=== PATIENT | male | born 1960 | race Caucasian/White ===

== ENCOUNTER 2023-07-28 12:32 | Outpatient (CLI) | payer BC, SELFPAY ==
--- NOTE | 2023-07-28 12:32 | NM_ITS ---
APPROVED REPORT Exam: Nuclear Stress Test Indication: HTN, FM HX, SOB, FATIGUE Patient Location: Outpatient Stress Tech: Melody Adan [place] Tech:Gracy HightowerJACKIE RT(R)(N) Ht: 5 ft 6 in Wt: 210 lbs HR: 67 bpm BP: 148/95 mmHg BSA: 2.04 m2 TID: 1.07 BMI: 33.8 History: HTN, FM HX, SOB, FATIGUE Procedure: Patient exercised on Steven protocol 8:53 minutes and sec, resting heart rate 67 bpm, resting blood pressure 148/95 mmHg, with exercise maximum heart rate achived was 150 bpm which is 94 % of the maximum predicted heart rate and blood pressure was 181/83 mmHg. Test was stopped due to FATIGUE. Patient has exercise capacity, achieved 10.1 METs of workload on treadmill, the blood pressure response to exercise was . Cardiac Stress and Resting SPECT Images: Cardiac Stress and Resting SPECT images were obtained using technetium 99m Myoview 31.5 mCi stress and 10.03 mCi at rest. Resting and stress imaging in supine and prone positions demonstrate no evidence of fixed or reversible perfusion defects. Gated imaging demonstrates normal global and regional LV systolic function. LVEF is calculated at 53%. Conclusion: No evidence of fixed or reversible perfusion defects. Gated imaging demonstrates normal global and regional LV systolic function. LVEF is calculated at 53%. Electronically signed by : Charo Caceres MD 07/29/2023 13:24:34
[2023-07-28] MEDS: ISOTOPE MYOVIEW (PER STUDY) 1 DOSE IV (14:59)
[2023-07-28] MEDS: SODIUM CHLORIDE 0.9% 10ML SYR (RAD ONLY) 10 ML IV ×2 (14:59)
== END 2023-07-28 23:59 ==
LOC: RAD 12:32
PROVIDERS: PCP Family Medicine; Visit Provider Physician Assistant
DX: R06.00 Dyspnea, unspecified (principal); R07.89 Other chest pain; R42 Dizziness and giddiness; G47.33 Obstructive sleep apnea (adult) (pediatric); M79.10 Myalgia, unspecified site; R53.83 Other fatigue
CPT/HCPCS: 78452; 93017; 93018; A9502

== ENCOUNTER 2023-08-04 09:59 | Outpatient (CLI) | payer BC, SELFPAY ==
--- NOTE | 2023-08-04 10:00 | CA_ITS ---
APPROVED REPORT EXAM: Comprehensive 2D, Doppler, and color-flow Echocardiogram Spud Grader: Flor Rose RVT Ht: 5 ft 6 in Wt: 212lbs BSA: 2.05 BP: 151/85 mmHg Indications: CP,SOA,DELFINA,EDEMA,FATIGUE,EX SMOKER,HTN,HLD TDS-PT BODY HABITUS 2D Dimensions LA Volume 32.30 mL LA Volume Index 15.76 mL/m2 (M/F) 16-34 M-Mode Dimensions RVDd 3.60 cm (0.9-2.6) LA Diam 3.70 cm (1.9-4.0) LVDd 4.65 cm (3.5-5.7) LVDs 2.82 cm (3.5-5.7) IVSd 0.78 cm (0.6-1.1) PWd 0.56 cm (0.6-1.1) EF (Teich) 69.80% FS 39.40% EDV (Teich) 99.80 mL TAPSE 2.21 (<1.7) ESV (Teich) 30.10 mL LV Diastology E Decel Time 150 (160-240 msec) E/A Ratio 1.1 Aortic Valve CROW Index 1.05 cm2/m2 AoV Peak Tj. 131.0 (50-130 cm/s) AO Peak GR. 6.80 mmHg AO Mean GR. 4.50 (<5 mmHg) AO VTI 26.7 (18-25 cm) CROW (VTI) 2.21 (2.5-4.5 cm2) Mitral Valve MV E Max Tj. 77.0 (40-130 cm/s) MV A Velocity 72.0 (40-130 cm/s) E/A Ratio 1.07 MV PHT 44.0 ms Pulmonary Valve PV Peak Velocity 61.0 (50-150 cm/s) Tricuspid Valve TR P. Velocity 188.00 cm/s RAP Estimate 10.00 mmHg RVSP 24.10 mmHg Left Ventricle The left ventricle is normal size. The left ventricular systolic function is normal. The left ventricular ejection fraction is within the normal range. There is increased LV wall thickness. There is normal LV segmental wall motion. The left ventricular diastolic function is normal. LVEF is 55%. Right Ventricle The right ventricle is normal size. The right ventricular systolic function is normal. Atria The left atrium is mildly dilated. The right atrium size is normal. There is no Doppler evidence of interatrial shunt. Aortic Valve The aortic valve is mildly thickened. There is no aortic valvular stenosis. Trace aortic regurgitation. Mitral Valve The mitral valve leaflets are mildly thickened. No evidence of mitral valve stenosis. Mild mitral regurgitation. Tricuspid Valve The tricuspid valve leaflets are thin and pliable. Trace tricuspid regurgitation. There is insufficient TR jet to estimate RVSP. Pulmonic Valve The pulmonary valve is normal in structure. Trace pulmonic regurgitation. Great Vessels The aortic root is normal in size. The ascending aorta is normal in size. IVC is normal in size and collapses >50% with inspiration. Pericardium There is no pericardial effusion. Other Information Study Quality: Fair Conclusion Normal biventricular systolic function. Mild LA dilation. Mild MR. Electronically signed by : Charo Caceres MD 08/07/2023 01:06:08
== END 2023-08-04 23:59 ==
LOC: RT 10:00
PROVIDERS: PCP Family Medicine; Visit Provider Physician Assistant
DX: R06.00 Dyspnea, unspecified (principal); R07.89 Other chest pain; R42 Dizziness and giddiness; R53.83 Other fatigue; M79.10 Myalgia, unspecified site; G47.33 Obstructive sleep apnea (adult) (pediatric)
CPT/HCPCS: 93306